=== PATIENT | male | born 1975 | race Caucasian/White ===

== ENCOUNTER 2022-07-02 08:21 | Emergency (ER) | payer MEDICARE, MEDICAID, SELFPAY ==
--- NOTE | ~2022-07-02 | US_ITS ---
EXAMINATION: US venous doppler LE RT DATE: 07/02/2022 11:15 INDICATION: Right lower limb swelling TECHNIQUE: Burk scale images without and with compression and Doppler images of the right lower extre mity veins were obtained. COMPARISON: None FINDINGS: The right common femoral vein, profunda femoral vein, femoral vein, popliteal vein, peronea l trunk, posterior tibial veins, and greater saphenous vein are patent. IMPRESSION: 1. Patent right lower extremity veins. No evidence of deep venous thrombosis. Reviewed, dictated and finalized at location B.
[2022-07-02 08:32] VITALS: BP 147/84; PULSE 92; RESP 16; TEMP 36.9; O2SAT 100
[2022-07-02 08:35] VITALS: BP 147/84; PULSE 92; RESP 16; TEMP 36.9; O2SAT 100
--- NOTE | 2022-07-02 09:14 | ED.EXTPRO ---
HPI - Extremity Problem General Chief complaint: Extremity Problem,Nontraumatic Stated complaint: right leg paini Time Seen by Provider: 07/02/22 08:36 History of Present Illness HPI Narrative: 46-year-old male with a history of psoriatic arthritis presents emergency room complaints of right knee discomfort. Patient states that he has been experiencing swelling to his right knee for over 2 months, progressively got worse over the last 5 days. States pain is worse with ambulation. Denies any injury or trauma. No history of DVTs. Patient also complaining of rash to his abdomen and left side of his face. States has been on steroids in the past which have alleviated some of his swelling, but refuses to be on any other recommended medications for his psoriatic arthritis. Related Data Allergies Allergy/AdvReac Type Severity Reaction Status Date / Time infliximab [From Remicade] AdvReac Hives Verified 07/02/22 08:35 Review of Systems Review of Systems: CONSTITUTIONAL: Denies fever, chills, or sweats. EYES: Denies visual changes, redness, or discharge. ENT: Denies rhinorrhea, congestion, sore throat, or otalgia. CARDIOVASCULAR: Denies chest pain, palpitations, or edema. RESPIRATORY: Denies cough or dyspnea. GASTROINTESTINAL: Denies abdominal pain, nausea, vomiting, or diarrhea. GENITOURINARY: Denies dysuria or hematuria. SKIN: Reports rash. MUSCULOSKELETAL: Reports right knee pain NEUROLOGIC: Denies headache, numbness, dizziness, or weakness. PSYCHIATRIC: Denies anxiety or depression. Exam Narrative: GENERAL: Well-appearing, well-nourished, no physical limitations, and in no acute distress. HEAD: Normocephalic, atraumatic. EYES: Conjunctivae normal, PERRLA and EOMI. CHEST: Clear to auscultation. No respiratory distress. No wheezes rales or rhonchi. No tenderness. HEART: Regular rate and rhythm. No murmur heard. Normal peripheral pulses. ABDOMEN: Soft, nontender, nondistended, normal active bowel sounds. EXTREMITIES: Right knee: Diffuse soft tissue swelling, no acute bony abnormality, limited range of motion due to pain, no joint laxity, neurovascular is intact distally SKIN: Large areas of erythematous plaque with raised border to the abdomen and left side of the face NEURO: No focal deficits. Alert and oriented x3. MAEW. CN's II-XI intact bilaterally, normal gait PSYCH: Cooperative. Normal mood and affect. Course Vital Signs Vital signs: Vital Signs Temperature 36.9 C 07/02/22 08:32 Pulse Rate 92 07/02/22 08:32 Respiratory Rate 16 07/02/22 08:32 Blood Pressure 147/84 H 07/02/22 08:32 Pulse Oximetry 100 07/02/22 08:32 Oxygen Delivery Room Air 07/02/22 08:32 Temperature 36.9 C 07/02/22 08:35 Pulse Rate 92 07/02/22 08:35 Respiratory Rate 16 07/02/22 08:35 Blood Pressure 147/84 H 07/02/22 08:35 Pulse Oximetry 100 07/02/22 08:35 Oxygen Delivery Room Air 07/02/22 08:35 MDM - Extremity (Nontraumatic) Lab Data Result diagrams: 07/02/22 09:23 07/02/22 09:23 Labs: Lab Results 07/02/22 07/02/22 07/02/22 Range/Units 09: 09:23 09:23 WBC 7.8 (4.5-10.0) K/mm3 RBC 4.92 (4.6-6.20) M/mm3 Hgb 14.9 (14.0-18.0) g/dL Hct 43.0 (42.0-52.0) % MCV 87.4 (80-100) fl MCH 30.3 (26-34) pg MCHC 34.7 (32-36) g/dl RDW 12.0 (11.5-14.5) % Plt Count 250 (150-375) k/mm3 MPV 9.2 (7.4-10.4) fl Immature Gran % (Auto) 0.9 H (0-0.5) % Neut % (Auto) 66.5 (45.5-73.1) % Lymph % (Auto) 21.0 (18.3-44.2) % [place] % (Auto) 10.4 H (2.6-8.5) % Eos % (Auto) 0.6 (0-4.4) % Baso % (Auto) 0.6 (0.2-1.2) % Lymph # (Auto) 1.63 (0.9-3.2) K/mm3 [place] # (Auto) 0.8 H (0.1-0.6) K/mm3 Eos # (Auto) 0.1 (0-0.3) K/mm3 Baso # (Auto) 0.1 (0.0-0.1) K/mm3 Abs Immat Gran (auto) 0.07 H (0.00-0.031) K/mm3 Absolute Neuts (auto) 5.2 (1.3-6.7) K/mm3 Absolute Nucleated RBC 0.0 (0.0-0.012) K/mm3 Nucle
[2022-07-02] MEDS: methylPREDNISolone SOD SUCC 125 MG VIAL IV PUSH (09:25)
[2022-07-02] MEDS: SODIUM CHLORIDE 0.9% IV 1,000 ML 999 ML IV CONT (09:26)
[2022-07-02 09:29] LABS: Basophils Absolute Auto 0.1 K/mm3 (0.0-0.1); Basophils Percent Auto 0.6 % (0.2-1.2); Eosinophils Absolute Auto 0.1 K/mm3 (0-0.3); Eosinophils Percent Auto 0.6 % (0-4.4); Hemoglobin 14.9 g/dL (14.0-18.0); Immature Granulocyte Absolute 0.07 K/mm3 (0.00-0.031); Immature Granulocyte Percent A 0.9 % (0-0.5); Lymphocytes Absolute Auto 1.63 K/mm3 (0.9-3.2); Mean Corpuscular HGB Conc 34.7 g/dl (32-36); Mean Corpuscular Hemoglobin 30.3 pg (26-34); Mean Corpuscular Volume 87.4 fl (80-100); Mean Platelet Volume 9.2 fl (7.4-10.4); Monocytes Absolute Auto 0.8 K/mm3 (0.1-0.6); Monocytes Percent Auto 10.4 % (2.6-8.5); Neutrophils Absolute Auto 5.2 K/mm3 (1.3-6.7); Neutrophils Percent Auto 66.5 % (45.5-73.1); Platelet Count Result 250 k/mm3 (150-375); Red Blood Count 4.92 M/mm3 (4.6-6.20); White Blood Count 7.8 K/mm3 (4.5-10.0)
[2022-07-02 09:42] LABS: Alanine Aminotransferase 26 U/L (6-50); Albumin Level 4.2 g/dL (3.5-5.1); Alkaline Phosphatase 86 U/L (38-126); Anion Gap 13 mmol/L (8-16); Aspartate Amino Transferase 23 U/L (17-59); Bilirubin,Total 0.8 mg/dL (0.2-1.3); Blood Urea Nitrogen 16 mg/dL (9-20); Calcium 9.2 mg/dL (8.4-10.2); Carbon Dioxide 28 mmol/L (22-30); Chloride 97 mmol/L (98-107); Estimated CRCL calculation 105 ml/min; Estimated Glomerular Filt Rate > 60; Glucose 309 mg/dL (65-110); Potassium 4.6 mmol/L (3.4-5.0); Sodium 138 mmol/L (137-145)
[2022-07-02 10:11] LABS: D Dimer 0.64 ug/mL (<0.48)
== END 2022-07-02 11:48 | disposition home or self-care (01) ==
PROVIDERS: Emergency Provider Nurse Practitioner Family; PCP Family Medicine
DX: M25.561 Pain in right knee (principal); B35.4 Tinea corporis; L40.50 Arthropathic psoriasis, unspecified; M79.604 Pain in right leg
CPT/HCPCS: 36415; 80053; 85025; 85380; 93971; 96361; 96374; 99284; J2930; J7030

== ENCOUNTER 2022-11-29 07:20 | Emergency (ER) | payer MEDICARE, MEDICAID, SELFPAY ==
--- NOTE | ~2022-11-29 | XR_ITS ---
AP, oblique, and lateral views of the mandible Clinical history: Left TMJ pain FINDINGS: No fracture or dislocation seen. No significant degenerative change clearly identified. Sof t tissues are unremarkable. IMPRESSION: No significant abnormality identified. Reviewed, dictated and finalized at location . [employer]
[2022-11-29 07:21] VITALS: BP 153/92; PULSE 99; RESP 14; TEMP 36.7; O2SAT 99
--- NOTE | 2022-11-29 08:41 | ED.DENTAL ---
HPI - Dental/Oral General Chief complaint: Dental/Oral Stated complaint: pain in left jaw, pain with eating, arthritis hx Time Seen by Provider: 11/29/22 07:27 Source: patient Mode of arrival: ambulatory Limitations: no limitations History of Present Illness HPI Narrative: This is a 46 year old male with psoriatic arthritis, DM who presents for evaluation of left jaw pain. Patient has noticed pain to left TMJ for over 1 week. His pain is worse with movement of his jaw and eating. He denies any dental pain, fever, chills, nausea or vomiting. He just finished steroid taper for arthritis flare up, and he also finished antibiotics for sinus infection. He state he was concerned about TMJ. He takes percocet for his chronic pain. Related Data Allergies Allergy/AdvReac Type Severity Reaction Status Date / Time infliximab [From Remicade] AdvReac Hives Verified 07/02/22 08:35 Review of Systems Constitutional: Constitutional: Denies weakness Cardiovascular: Cardiovascular: Denies syncope, Denies rapid heart rate, Denies irregular heart rhythm, Denies leg edema and Denies dyspnea Respiratory: Respiratory: Denies chest congestion, Denies hemoptysis, Denies excessive phlegm production and Denies dyspnea Gastrointestinal: Gastrointestinal: Denies abdominal pain, Denies hematochezia, Denies diarrhea and Denies vomiting Genitourinary: Genitourinary: Denies hematuria, Denies dysuria, Denies penile discharge and Denies testicular pain Musculoskeletal: Musculoskeletal: Reports arthralgias, Reports joint swelling, Denies loss of height and Denies muscle weakness Integumentary/Breasts: Skin/Breast: Reports rash Neurologic: Denies syncope, Denies focal weakness and Denies weakness [facility] Past Medical History Medical History (Updated 11/29/22 @ 08:48 by Audra Landeros MD) Diabetes mellitus Heart valve disease Psoriatic arthritis Surgical History Surgical History (Updated 11/29/22 @ 08:45 by Adura Landeros MD) No pertinent past surgical history Exam Const: General: no acute distress and alert Nutritional Appearance: obese Orientation/consciousness: patient oriented x3 Limitations: no limitations HENMT: Head: normal to inspection Ears: external ears normal, TM's normal bilaterally and EAC's normal Face/Nose/Sinus: Normal external nose present Face and sinus: sinuses nontender Mouth: Yes Normal oral and palatal mucosa present, Yes lip normal and Yes moist mucous membranes Throat: posterior oropharynx normal and uvula midline Other: dental caries present, no dental tenderness or gum swelling, there is tenderness at TMJ, no facial swelling or redness Eyes: EOM: EOMs intact bilaterally Neck: Neck: normal visual inspection Resp: Effort & Inspection: normal respiratory effort Skin: General skin exam: normal color Rashes: no rashes Wounds: no wounds Neuro: General: patient oriented x3, moves all extremities and CN's II-XI intact bilaterally Psych: Mental Status: mental status grossly normal Affect: normal affect Attitude: cooperative Course Reevaluation(s) Reevaluation #1: I Discussed with patient xray did not show any thing acute. He states he is unable to take NSAIDS due to methotraxate. He just finished prednisone and that did not help pain. steroids also complicated his DM. 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 Date: 11/29/22 Time: 08:46 Vital Signs Vital signs: Vital Signs Temperature 98.0 F 11/29/22 07:21 Pulse Rate 99 11/29/22 07:21 Respiratory Rate 14 11/29/22 07:21 Blood Pressure 153/92 H 11/29/22 07:21 Pulse Oximetry 99 11/29/22 07:21 Temperature 98.0 F 11/29/22 07:21 Pulse Rate 99 11/29/22 07:21 Respiratory Rate 14 11/29/22 07:21 Blood Pressure 153/92 H 11/29/22 07:21 Pulse Oximetry 99 11/29/22 07:21 MDM - Dental/Oral Imaging Data Radiologist's impression: ITS Impressi
== END 2022-11-29 09:02 | disposition home or self-care (01) ==
PROVIDERS: Emergency Provider General Practice; PCP Family Medicine
DX: M26.622 Arthralgia of left temporomandibular joint (principal); E11.9 Type 2 diabetes mellitus without complications; L40.50 Arthropathic psoriasis, unspecified; I38 Endocarditis, valve unspecified
CPT/HCPCS: 70110; 99283